=== PATIENT | female | born 1950 | race Two or more races ===

== ENCOUNTER 2019-09-17 15:57 | Emergency (ER) | payer OTHER ==
[~2019-09-17] VITALS: Ht 157.5 cm; Wt 78.0 kg
[2019-09-17 16:46] LABS: Basophils # (auto) 0 uL; Basophils % (auto) 0.6 % (0.0-2.0); Eosinophils # (auto) 0 uL; Eosinophils % (auto) 0.4 % (0.0-7.0); Hematocrit 41.9 % (36.0-46.0); Hemoglobin 13.7 g/dL (12.2-16.2); Lymphocytes # (auto) 1.5 uL; Lymphocytes % (auto) 25.5 % (10.0-50.0); Mean Corpuscular Hemoglobin 27.9 pg (28.0-32.0); Mean Corpuscular Hgb Conc. 32.7 g/dL (32.0-36.0); Mean Corpuscular Volume 85.2 fL (80.0-100.0); Monocytes # (auto) 0.7 uL; Monocytes % (auto) 12.4 % (0.0-12.0); Neutrophils # (auto) 3.5 uL; Neutrophils % (auto) 61.1 % (37.0-80.0); Nucleated Red Blood Cells % 0.1 %; Platelet Count (auto) 214 10^3/uL (140-450); Red Blood Cells 4.91 10^6/uL (4.0-5.20); Red Cell Distribution Width 13.2 % (11.8-14.3); White Blood Cell 5.8 10^3/uL (4.4-10.8)
[2019-09-17 17:03] LABS: INR 1.02 (0.9-1.15); Partial Thromboplastin Time 27.8 sec (23.64-32.05)
[2019-09-17 17:07] LABS: BUN/Creatinine Ratio 16.7; Calcium 9.1 mg/dL (8.5-10.1); Potassium 3.6 mmol/L (3.5-5.1)
[2019-09-17 17:10] LABS: Bilirubin, Total 0.3 mg/dL (0.2-1.0); Total Protein 8.8 g/dL (6.4-8.2)
[2019-09-18] MEDS ORDERED: MORPHINE SULF INJ 2 MG/ML SYRINGE 1ML IV ONE (01:00)
[2019-09-18] MEDS ORDERED: ONDANSETRON HCL 4 MG/2 ML VIAL IV ONE (01:00)
[2019-09-18 02:52] VITALS: BP 126/66
== END 2019-09-18 03:49 | disposition home or self-care (01) ==
LOC: ER 15:57
DX: R51 Headache (principal); Z86.79 Personal history of other diseases of the circulatory system
CPT/HCPCS: 36415; 70450; 80053; 85025; 85610; 85730; 86850; 86900; 86901; 86920; 96374; 96375; 99284; J2270; J2405